=== PATIENT | female | born 1970 | race Caucasian/White ===

== ENCOUNTER 2023-07-31 08:46 | Outpatient (CLI) | payer OTHER, SELFPAY ==
--- NOTE | ~2023-07-31 | US_ITS ---
Pelvic ultrasound. Clinical History: Postmenopausal bleeding Technique: Realtime transabdominal and transvaginal scanning of the pelvis was performed. Color flow Doppler and Doppler spectral analysis were performed. Findings: The uterus is anteverted. The endometrial stripe has a thickness of 3 mm. No focal myometr ial mass evident. There is a 1.9 x 2.1 x 1.7 cm hypoechoic mass this appears to be adjacent to the ce rvix.. Neither ovary seen. No other adnexal mass seen. There is no evidence of free fluid in the cul de sac. Impression: 1.9 x 2.1 x 1.7 cm hyperechoic mass which appears to be adjacent to the cervix. This is indeterminate . Pre and postcontrast MR recommended for the next best imaging evaluation. Reviewed, dictated and finalized at [facility]. Impression: 1.9 x 2.1 x 1.7 cm hyperechoic mass which appears to be adjacent to the cervix. This is indeterminate. Pre and postcontrast MR recommended for the next best i maging evaluation.
== END 2023-07-31 08:47 | disposition home or self-care (01) ==
PROVIDERS: PCP Nurse Practitioner; Visit Provider Registered Nurse
DX: N95.0 Postmenopausal bleeding (principal); R93.41 Abnormal radiologic findings on diagnostic imaging of renal pelvis, ureter, or bladder
CPT/HCPCS: 76830; 76856

== ENCOUNTER 2023-08-15 10:21 | Outpatient (CLI) | payer OTHER, SELFPAY ==
--- NOTE | ~2023-08-15 | MR_ITS ---
EXAMINATION: MR pelvis wo/w con DATE: 08/15/2023 11:34 INDICATION: Mass adjacent to the cervix on pelvic ultrasound TECHNIQUE: Magnetic resonance imaging (MRI) of the pelvis was performed without and with 17 mL Multih ance intravenous contrast. Fullfield sequences of the pelvis included axial and coronal T2-weighted S S FSE, coronal 2D FIESTA, axial T1-weighted FSPGR, axial dual-echo T1-weighted FSPGR and axial T1 malena ghted LAVA. Small field of view sequences included axial, sagittal and coronal T2-weighted FSE cente red on the uterus and adnexa. Postcontrast sequences included a time course axial T1-weighted LAVA w ith full-field of view of the pelvis. COMPARISON: Pelvic ultrasound dated 07/31/2023 FINDINGS: A few small diverticula along the sigmoid colon without adjacent comparison to suggest diverticular c olitis. The visualized bowels are otherwise unremarkable with no obstruction. Normal appendix. Bladde r is normal. Anteverted uterus and bilateral adnexa are normal. A couple subcentimeter T2 hyperintens e nabothian cysts at the cervix. 1.9 x 1.8 x 1.8 cm enhancing nodule centered at the right side of th e junction of the vaginal vault and cervix. No pathologically enlarged pelvic or inguinal lymphadenop athy. No free fluid in the visualized pelvis. Mild lower lumbar spondylosis. Bone marrow signal is no rmal throughout. IMPRESSION: 1. Indeterminate 1.9 cm enhancing nodule at the junction of the vaginal vault and right side of the c ervix. There is could represent a benign subserosal fibroid although differential also includes malig prisca originating either from the cervix or adjacent vagina. Reviewed, dictated and finalized at location A. IMPRESSION: 1. Indeterminate 1.9 cm enhancing nodule at the junction of the vaginal vault a nd right side of the cervix. There is could represent a benign subserosal fibro id although differential also includes malignancy originating either from the c ervix or adjacent vagina.
== END 2023-08-15 10:22 ==
PROVIDERS: PCP Nurse Practitioner; Visit Provider Obstetrics & Gynecology
DX: R93.89 Abnormal findings on diagnostic imaging of other specified body structures (principal); R19.09 Other intra-abdominal and pelvic swelling, mass and lump
CPT/HCPCS: 72197; A9577

== ENCOUNTER 2024-03-12 01:28 | Day surgery (SDC) | payer OTHER, SELFPAY ==
[2024-03-02 09:20] VITALS: BMI 34.9
--- NOTE | 2024-03-02 09:49 | PC.NURSE ---
Report to the Outpatient Waiting Room, entrance under the green pavilion located off [facility], at time _0600 on date _03/12/24 . Planned Procedure Time: _0730 . Time changes happen often and if your time is changed the preop area will call you the afternoon before. - You and your visitor will be asked to self-screen and do not enter if you have any COVID symptoms. - A mask is optional within the hospital at this time. Patients may have clear liquids (water, carbonated beverages, clear teas, apple juice) until 3 hours prior to surgery with a maximum of 20 ounces. - No food from midnight until time of surgery - Infants may have breast milk until 4 hours before surgery, infant formula 6 hours prior to surgery. - Children will be allowed to drink immediately following surgery. If applicable, please bring a bottle or sippy cup to assist with drinking. Juice, water, soda, and popsicles are readily available. For infants on formula, please bring formula the day of surgery. Pacifiers are allowed. Take the following medications with a SIP of water the morning of surgery: __N/A DO NOT STOP ANY OF YOUR OTHER PRESCRIPTION MEDICATIONS PRIOR TO SURGERY ?EXCEPT THE FOLLOWING Medications to discontinue per physician _Heydi (Patient takes on fridays and will not take another until after procedure. Vitamins and supplements 3 days prior Please no make-up, nail ugandan, hairspray, perfume, deodorant, or body powder the day of surgery. No jewelry (including any body piercings) or valuables the day of surgery, leave them at home. Please take a shower or bath the night before, or the morning of, surgery with an antibacterial soap. Wear comfortable, loose fitting clothing. Children are encouraged to wear pajamas. - Jewelry must be removed prior to entering the operating room. Rings and piercings that are not removed may be cut off. - The hospital will not accept responsibility for valuables. - Please leave all valuables, including medications, at home the day of surgery. If you are going home after surgery, a licensed [place] driver must drive you home. - NO public transportation without another adult if you receive anesthesia. - We recommend that an adult stay with you for 24 hours following discharge. - We also recommend that you do not drive, make important decision, drink alcoholic beverages, or take any drugs that were not prescribed by your health care provider for at least 24 hours after your discharge time. For Pediatric surgeries, we recommend two adults accompany the child home. Follow any additional instructions given to you from your surgeon. If you or anyone in your household have experienced Covid symptoms in the past week, please notify your surgeon or the nurse liaison at the phone number below for possible testing. Telephone instructions given to _Lorrie__and asked if any additional questions and then verbalized understanding. Patient advised to call surgeon office or pre surgery nurse liaison [phone] if any additional questions.
[2024-03-12 06:09] VITALS: BP 124/71; PULSE 77; RESP 16; TEMP 36.2; O2SAT 98
[2024-03-12] MEDS: ACETAMINOPHEN 500 MG TABLET 1000 MG PO (06:25)
[2024-03-12] MEDS: LACTATED RINGERS 1,000 ML 30 ML IV CONT (06:25)
[2024-03-12 06:39] LABS: Glucose Point of Care 95 mg/dl (65-105)
--- NOTE | 2024-03-12 06:40 | WPDANESEPPF ---
Anes - Initial Pre Proc Eval Procedure: Operation Date: 03/12/24 07:30 Proposed Procedures p Hysteroscopy, Dilation and Curettage with Removal of Endometrial Lesion if Necessary - Major Domingo MD Date/Time: 03/12/24 06:40 Surgeon: Major Domingo MD Pre Op Diagnosis: abnormal uterine bleeding Patient Data Age: 53 Gender: F Height: 1.57 m Weight: 87.2 kg Last Vital Signs Temp 36.2 C L 03/12/24 06:09 Pulse 77 03/12/24 06:09 Resp 16 03/12/24 06:09 BP 124/71 03/12/24 06:09 Pulse Ox 98 03/12/24 06:09 O2 Del Method Room Air 03/12/24 06:09 Allergies Allergy/AdvReac Type Severity Reaction Status Date / Time oxycodone [From Percocet] Allergy Intermediate Itching Verified 03/12/24 06:13 testosterone Allergy Intermediate Itching Verified 03/12/24 06:13 ssri AdvReac Mild Unknown Uncoded 03/12/24 06:13 Home Medications Medication Instructions Recorded Confirmed Type progesterone micronized 200 mg 300 mg PO QHS 12/09/23 03/12/24 History capsule cholecalciferol (vitamin D3) 125 125 mcg PO DAILY 12/17/23 03/12/24 History mcg (5,000 unit) tablet (Vitamin D3) estradiol 1.25 gram/actuation 1 pump transdermal DAILY 12/17/23 03/12/24 History (0.06%) transdermal gel pump magnesium glycinate 100 mg tablet 500 mg PO HS 12/17/23 03/12/24 History methyltestosterone 10 mg tablet 30 mg PO DAILY 12/17/23 03/12/24 History semaglutide 1 mg/dose (4 mg/3 mL) 1 mg subcut WEEKLY 02/12/24 03/12/24 History subcutaneous pen injector Laboratory Tests 03/12/24 06:27 POC Capillary Glucose 95 mg/dl (65-105) Patient hx anesthesia problems: none Family hx anesthesia problems: none Results Review: All pre-operative results and documents have been reviewed as part of the pre-operative evaluation. [facility] Past Medical History Medical History Anxiety Headache, migraine Hypothyroidism Vaginal delivery Surgical History Surgical History History of bilateral breast reduction surgery Family History Family History Father Alcoholism Mother Alcoholism Heart disease Hypertension Depression Sibling Cerebrovascular accident Grandparent Alcoholism Hypertension Depression Heart disease Social History Social History Smoking status: Never smoker Alcohol intake: never Substance use: never Substance use type: does not use Lack of Transportation: No Lack of Food: Never True Current Housing: I Have Housing Concerned About Future Housing: No Difficulty Paying Gas/Electric Bills: No Difficulty Paying for Meds: No Currently Unemployed: No Difficulty w/ Childcare or Family Care: No Living arrangements: with family Occupation/Education: occupation Gender identity (if verbalized by the patient): Female Sexual Orientation (if Verbalized by the Patient): Straight or Heterosexual Spiritual care concerns: No Anes - Eval Final PreProcedure Day of Procedure 03/12/24 06:40 Patient weight: obese Heart: regular rate and rhythm Lungs: clear to auscultation Airway: Mallampati scale class II Neurological: alert and oriented Last oral intake: >/= 8 hours ASA classification: III Emergent: no Anesthetic plan: proceed Anesthesia type and monitoring: general GIVS and standard monitoring Results Review: All pre-operative results and documents have been reviewed as part of the pre-operative evaluation. Informed Consent: The patient's anesthetic plan and its attendant risks and benefits were discussed with the patient/family/POA. Questions were solicited and answers provided to the satisfaction of the patient/family/POA.
--- NOTE | 2024-03-12 07:13 | WPDHPUPDATE1 ---
History and Physical Update Update Date/Time: 03/12/24 07:13 History and Physical has been reviewed, including an updated exam of the patient. There are NO changes in the patient's condition. Risks, benefits, and alternatives have been discussed and questions answered. Patient agrees to proceed with procedure. Will perform Dilation and curettage and hysteroscopy and removal of lesion if present.
[2024-03-12] MEDS: ceFAZolin 2 GM/D5W 50 ML 2 GM/50 ML BAG IVPB (07:24)
[2024-03-12] MEDS: LIDOCAINE HCL 1% LOCAL INJ 20 ML VIAL 10 ML INFILTRATE (07:43)
[2024-03-12] MEDS: SILVER NITRATE (*SP) STICK 4 EACH TOPICAL (07:45)
[2024-03-12] MEDS: FERRIC SUBSULFATE 8 ML SOLUTION WITH APPLICATOR TOPICAL (07:50)
[2024-03-12 07:56] VITALS: BP 116/55; PULSE 81; RESP 14; O2SAT 96
--- NOTE | 2024-03-12 07:56 | W.PM.PROC2 ---
Procedure Note - Detailed Date of Procedure 03/12/24 Pre-op Diagnosis abnormal uterine bleeding Post-op Diagnosis Other (Paracervical growth) Procedure Performed Dilation and curettage hysteroscopy diagnostic. Biopsy of paracervical growth. Surgeon Major Domingo MD Anesthesia MAC and Local Indications 1. Postmenopause bleeding 2. Abnormal ultrasound finding Findings Uterus sound to 6.5 cm. The uterine cavity was atrophic. Minimal tissue obtained on curettage. On exam there is a 2cm growth paracervical palpated subvaginal tissue. Description of Procedure After form consent was obtained patient was taken to the operating room and adequate IV sedation was administered. She was placed in high lithotomy position and prepped and draped in sterile fashion. Attention was turned to the vagina. Speculum inserted. Single-tooth tenaculum placed on anterior lip of the cervix. 1% lidocaine was injected at the cervical vaginal interface at 2, 5, 8 and 10 oclock position. The small dilator was inserted. The uterine sound was inserted and sounded to 6.5 cm. The cervical dilated to 4 and the rest of the dilation was with hydrodilation with the hysteroscope. The cavity appeared atrophic. No lesions seen. A curettage was then performed and there was minimal tissue obtained. A biopsy forcep was used to biopsy the paracervical growth. Hemostasis at site obtained with silver nitrate and cautery. Monsels placed. The single-tooth tenaculum was removed. Hemostasis was noted. The speculum was removed. The patient tolerated procedure well. Estimated Blood Loss 5 Drains No Packing No Pathology Other ( Scant endometrial curettings 2. biopsy of subvaginal paracervical growth ( by palpation consistent with fibroid)) Complications No immediate complications Condition Stable Disposition Same day [facility] Billing Surgery - Charge Forward: Surgery Billing
[2024-03-12 08:25] VITALS: BP 133/72; PULSE 64; RESP 20
[2024-03-12] MEDS: KETOROLAC 30 MG/ML VIAL (*BKC) IV PUSH (08:26)
[2024-03-12 08:50] VITALS: BP 121/71; PULSE 58; RESP 20
== END 2024-03-12 08:58 | disposition home or self-care (01) ==
PROVIDERS: PCP Nurse Practitioner; Visit Provider Obstetrics & Gynecology
PROC: 0U5B8ZZ Destruction of Endometrium, Via Natural or Artificial Opening Endoscopic (ICD-10-PCS; CPT 58563; principal; 2024-03-12 07:30)
DX: N93.9 Abnormal uterine and vaginal bleeding, unspecified (principal); N88.8 Other specified noninflammatory disorders of cervix uteri; Z79.85 Long-term (current) use of injectable non-insulin antidiabetic drugs; E03.9 Hypothyroidism, unspecified; F41.9 Anxiety disorder, unspecified; E66.9 Obesity, unspecified; Z68.35 Body mass index [BMI] 35.0-35.9, adult
CPT/HCPCS: 58558; 57500; 82948; 88305; A9270; J0690; J1100; J1885; J2250; J2704; J3010; J7120